=== PATIENT | female | born 1930 | race Caucasian/White ===

== ENCOUNTER 2017-10-17 15:40 | Inpatient (IN) ==
[2017-10-17] MEDS: SALINE FLUSH 10ml SYRINGE IVF PRN ×3 (16:19→21:26)
--- NOTE | 2017-10-17 16:48 | Emergency Department Report ---
Syncope HPI - General Chief Complaint: Syncope Stated Complaint: syncope, abd pain, dark stool Time Seen by Provider: 10/17/17 16:15 Source: patient, family Mode of arrival: EMS Limitations: no limitations - History of Present Illness HPI narrative: Pt presents after having fallen this am. Pt states she had been somewhat nauseated this am so she got up to get a drink of water. Pt then found herself on the floor laying next to her tipped over walker. Pt denies being dizzy or light headed prior to fall. She does not believe she was out for anything more than a "very brief" time. Pt denies head, neck or back pain, chest pain, SOA, dizziness, weakness, cough, vomiting, diarrhea, SIN, vision changes, or abd pain. Pt also reports recent dark stools. Daughter reports she saw a stool pt had just prior to arrival and noted there to be blood in it. MD complaint: loss of consciousness Onset (ago): minute(s) Witnessed: no Injuries sustained associated with event: none Current symptoms: none - Related Data Home Medications Medication Instructions Recorded Confirmed [place]-3 Fatty Acids/Fish Oil 2 cap PO DAILY #0 02/25/10 10/17/17 [Elrosa 3 1,000 mg Softgel] Potassium Chloride 20 meq PO DAILY #0 02/25/10 10/17/17 Gluc Romero/Chondro Romero A/Vit C/Mn 1 cap PO BID #0 06/25/10 10/17/17 (Glucosamine 1,500 Complex Cap) Red Yeast Rice 2 tab DAILY #0 06/25/10 10/17/17 Propranolol Hcl 60 mg PO DAILY #0 06/16/11 10/17/17 Ubidecarenone/Vitamin E Mixed 1 cap PO BID #0 06/16/11 10/17/17 (Coq10 Sg 100 Softgel) Amlodipine Besylate 5 mg PO DAILY #0 tab 06/15/13 10/17/17 Aspirin 325 mg PO DAILY #0 06/15/13 10/17/17 Multivitamins (Multivitamin) 1 tab PO DAILY #0 06/15/13 10/17/17 Acetaminophen [Tylenol Extra 1 - 2 tab PO Q6H PRN #0 tab 06/11/15 10/17/17 Strength] Calcium Carbonate/Vitamin D3 1 tab PO BID #0 06/11/15 10/17/17 (Calcium 600 + D Tablet) Cholecalciferol [Vit. D-3] 1 tab PO DAILY #0 06/11/15 10/17/17 Tramadol HCl [Ultram] 50 mg PO Q6HR PRN #0 tab 06/11/15 10/17/17 Benazepril HCl 40 mg PO DAILY 10/17/17 10/17/17 HydroCHLOROthiazide [Microzide] 12.5 mg PO DAILY 10/17/17 10/17/17 Meloxicam [Meloxicam] 15 mg PO DAILY 10/17/17 10/17/17 Trazodone [Desyrel] 100 mg PO HS 10/17/17 10/17/17 Allergies Allergy/AdvReac Type Severity Reaction Status Date / Time No Known Drug Allergies Allergy Unknown Unverified 10/17/17 16:17 Review of Systems All systems: reviewed and negative except as stated Constitutional: Reports: as per HPI Eyes: Reports: as per HPI Cardiovascular: Reports: as per HPI Respiratory: Reports: as per HPI Gastrointestinal: Reports: as per HPI Musculoskeletal: Reports: as per HPI Neurological: Reports: as per HPI Physical Exam - Limitations Limitations: no limitations - General General appearance: alert, in no apparent distress - Normal Exams: Head:: Normocephalic without trauma Eyes:: Pupils are PERRLA w/ EOMI Neck:: Full range of motion, without adenopathy Chest/Respirations:: Clear all meredith, with good airflow, and symmetry bilaterally Cardiovascular:: Regular rate and rhythm, without murmur or gallop, Pulses 2+ all extremities, capillary refill, <2 seconds all extremities Abdomen:: Bowel sounds positive, soft, non-tender, non-distended Musculoskeletal:: No tenderness, or deformity noted, good range of motion, all extremities Integumentary:: No rashes Neurological:: Patient is alert, and oriented, cranial nerves, motor/sensory/ cerebellar, exams w/o gross deficits, to observation Psychiatric:: Patient exhibits, appropriate attention, emotion and affect Course Vital Signs Temperature 97.9 F 10/17/17 15:40 Pulse Rate 79 10/17/17 15:40 Respiratory Rate 16 10/17/17 15:40 Blood Pressure 182/80 H 10/17/17 15:40 Pulse Oximetry 95 10/17/17 15:40 Temperature 97.9 F 10/17/17 15:40 Pulse Rate 79 10/17/17 15:40 Respiratory Rate 16 10/17/17 15:40 Blood Pressure 182/80 H 10/17/17 15:40 Pulse Oximetry 95 10/17/17 15:40 Syncope - MDM Narrative Medical decision making narrative: Labs, EKG, and CT reviewed. NS initiated. Dr Mitchell notified of suspicion for GI bleed and will admit pt. Findings discussed with pt and family who verbalize understanding of plan and need for admit. - Differential Diagnosis Likely: vasovagal syncope, subarachnoid hemorrhage, dehydration (GI bleed) - Lab Data Attestation: I reviewed the patient's lab results. Result diagrams: 10/17/17 16:19 10/17/17 16:19 Lab Results 10/17/17 10/17/17 10/17/17 Range/Units 16:19 16:19 16:19 WBC 8.2 (4.5-11.0) T/MM3 RBC 3.11 L (4.00-5.20) M/MM3 Hgb 8.7 L (12-16) GM/DL Hct 26.9 L (36-46) % MCV 86.5 (80-100) UM3 MCH 28.0 (26-34) UUG MCHC 32.3 (31-37) GM/DL RDW Std Deviation 42.1 (36.9-50.2) FL Plt Count 323 (130-400) T/MM3 MPV 8.6 L (9.4-12.4) UM3 Immature Gran % (Auto) 0.1 (0.0-0.5) % Neut % (Auto) 70.7 H (33-66) % Lymph % (Auto) 19.8 L (23-45) % [place] % (Auto) 7.0 (0-9.0) % Eos % (Auto) 2.2 (0-4) % Baso % (Auto) 0.2 (0-2) % Neut # (Auto) 5.8 (1.8-7.7) T/MM3 Lymph # (Auto) 1.6 (1-4.8) T/MM3 [place] # (Auto) 0.6 (0-0.8) T/MM3 Eos # (Auto) 0.2 (0-0.5) T/MM3 Baso # (Auto) 0.0 (0-0.2) T/MM3 Abs Immat Gran (auto) 0.01 (0.00-0.03) T/MM3 Turbidity < 20 (0-20) Sodium 136 (134-144) MEQ/L Potassium 3.9 (3.6-5) MEQ/L Chloride 98 (98-107) MEQ/L Carbon Dioxide 31 H (22-30) MEQ/L Anion Gap 7 (5-15) MEQ/L BUN 44.0 H (7-17) MG/DL Creatinine 0.6 L (0.7-1.2) mg/dL GFR Calculation 94 BUN/Creatinine Ratio 73 H (6-26) RATIO Glucose 107 (65-110) MG/DL Calculated Osmolality 273 (261-280) MOSM/KG Calcium 9.1 (8.4-10.2) MG/DL Total Bilirubin 0.40 (0.20-1.30) MG/DL Icterus Index < 2 (0-7) AST 30 (14-36) U/L ALT 52 (9-52) U/L Alkaline Phosphatase 76 (38-126) U/L Troponin I < 0.012 (0-0.12) ng/ml Total Protein 6.4 (6.3-8.2) g/dL Albumin 3.6 (3.5-5.0) g/dL Globulin 2.8 (2.4-3.6) G/DL Albumin/Globulin Ratio 1.3 (1.1-2.2) RATIO Lipase (23-300) U/L Specimen Hemolysis < 15 (0-25) Ur Collection Type Urine, cath straight Urine Color Yellow (YELLOW) Urine Clarity Clear Urine pH 6.0 (5.0-8.0) Ur Specific [place] <=1.005 L (1.015-1.025) Urine Protein Negative (NEGATIVE) Urine Glucose (UA) Negative (NEGATIVE) Urine Ketones Negative (NEGATIVE) Urine Occult Blood Negative (NEGATIVE) Urine Nitrate Negative (NEGATIVE) Urine Bilirubin Negative (NEGATIVE) Urine Urobilinogen 0.2 (NORMAL) EU/DL Ur Leukocyte Esterase Negative (NEGATIVE) Urinalysis Comment Microscopic not ind. Stool Occult Blood 10/17/17 10/17/17 Range/Units 16:19 17:01 WBC (4.5-11.0) T/MM3 RBC (4.00-5.20) M/MM3 Hgb (12-16) GM/DL Hct (36-46) % MCV (80-100) UM3 MCH (26-34) UUG MCHC (31-37) GM/DL RDW Std Deviation (36.9-50.2) FL Plt Count (130-400) T/MM3 MPV (9.4-12.4) UM3 Immature Gran % (Auto) (0.0-0.5) % Neut % (Auto) (33-66) % Lymph % (Auto) (23-45) % [place] % (Auto) (0-9.0) % Eos % (Auto) (0-4) % Baso % (Auto) (0-2) % Neut # (Auto) (1.8-7.7) T/MM3 Lymph # (Auto) (1-4.8) T/MM3 [place] # (Auto) (0-0.8) T/MM3 Eos # (Auto) (0-0.5) T/MM3 Baso # (Auto) (0-0.2) T/MM3 Abs Immat Gran (auto) (0.00-0.03) T/MM3 Turbidity (0-20) Sodium (134-144) MEQ/L Potassium (3.6-5) MEQ/L Chloride (98-107) MEQ/L Carbon Dioxide (22-30) MEQ/L Anion Gap (5-15) MEQ/L BUN (7-17) MG/DL Creatinine (0.7-1.2) mg/dL GFR Calculation BUN/Creatinine Ratio (6-26) RATIO Glucose (65-110) MG/DL Calculated Osmolality (261-280) MOSM/KG Calcium (8.4-10.2) MG/DL Total Bilirubin (0.20-1.30) MG/DL Icterus Index (0-7) AST (14-36) U/L ALT (9-52) U/L Alkaline Phosphatase (38-126) U/L Troponin I (0-0.12) ng/ml Total Protein (6.3-8.2) g/dL Albumin (3.5-5.0) g/dL Globulin (2.4-3.6) G/DL Albumin/Globulin Ratio (1.1-2.2) RATIO Lipase 87 (23-300) U/L Specimen Hemolysis (0-25) Ur Collection Type Urine Color (YELLOW) Urine Clarity Urine pH (5.0-8.0) Ur Specific [place] (1.015-1.025) Urine Protein (NEGATIVE) Urine Glucose (UA) (NEGATIVE) Urine Ketones (NEGATIVE) Urine Occult Blood (NEGATIVE) Urine Nitrate (NEGATIVE) Urine Bilirubin (NEGATIVE) Urine Urobilinogen (NORMAL) EU/DL Ur Leukocyte Esterase (NEGATIVE) Urinalysis Comment Stool Occult Blood Positive A - Radiology Data Attestation: I reviewed the patient's radiology results. (read per V rad) - EKG Data EKG #1 EKG attestation: Yes: I reviewed and interpreted this EKG. EKG shows normal: sinus rhythm Rate: normal Rhythm: NSR Heart block present: [place] 2 Disposition Clinical Impression: Syncope Qualifiers: Syncope type: vasovagal syncope Qualified Code(s): R55 - Syncope and collapse GI bleed Qualifiers: GI bleed type/associated pathology: unspecified gastrointestinal hemorrhage type Qualified Code(s): K92.2 - Gastrointestinal hemorrhage, unspecified Disposition: 02 To [facility] [place] Acute Care Condition: Improved Prescriptions: No Action Elrosa-3 Fatty Acids/Fish Oil [Elrosa 3 1,000 mg Softgel] 2 cap PO DAILY #0 Gluc Romero/Chondro Romero A/Vit C/Mn (Glucosamine 1,500 Complex Cap) 1 cap PO BID #0 Red Yeast Rice 2 tab DAILY #0 Ubidecarenone/Vitamin E Mixed (Coq10 Sg 100 Softgel) 1 cap PO BID #0 Amlodipine Besylate 5 mg PO DAILY #0 tab Aspirin 325 mg PO DAILY #0 Calcium Carbonate/Vitamin D3 (Calcium 600 + D Tablet) 1 tab PO BID #0 Tramadol HCl [Ultram] 50 mg PO Q6HR PRN #0 tab PRN Reason: Pain Trazodone [Desyrel] 100 mg PO HS HydroCHLOROthiazide [Microzide] 12.5 mg PO DAILY Potassium Chloride 20 meq PO DAILY #0 Propranolol Hcl 60 mg PO DAILY #0 Multivitamins (Multivitamin) 1 tab PO DAILY #0 Cholecalciferol [Vit. D-3] 1 tab PO DAILY #0 Acetaminophen [Tylenol Extra Strength] 1 - 2 tab PO Q6H PRN #0 tab PRN Reason: PAIN Benazepril HCl 40 mg PO DAILY Meloxicam [Meloxicam] 15 mg PO DAILY Referrals: Nevin Hebert MD [Family Provider] - Time of Disposition: 17:23 - Seen By: midlevel
[2017-10-17] MEDS ORDERED: NS 1,000 ML IV ONE (16:50)
[2017-10-17] MEDS ORDERED: ONDANSETRON 4 MG/2 ML INJECTION IVP PRN (18:09)
[2017-10-17] MEDS ORDERED: MORPHINE SULFATE 4mg INJECTION IVP PRN (18:09)
[2017-10-17] MEDS ORDERED: ACETAMINOPHEN 325 MG TABLET PO PRN (18:09)
[2017-10-17] MEDS ORDERED: NS FLUSH BAG 500ml IV PRN (18:14)
--- NOTE | 2017-10-17 18:27 | History & Physical Report ---
History of Present Illness Date: 10/17/17 Chief complaint: GI bleed, syncope HPI: Mirlande Yan is a very pleasant, relatively healthy, 87-year-old female patient of Dr. Hebert. She reports that for the past few weeks she has had increasing generalized weakness and fatigue. This morning, around 0700, she woke up and had some mild epigastric abdominal pain and nausea. She got up and had a drink of water and then the next thing she remembers is waking up on the floor with her walker on it's side. She denies any injury or other proceeding symptoms. No head injury, dizziness, lightheadedness, headache, change in vision, chest pain, shortness of breath, heart racing or palpitations. She was able to get herself up off the floor using her walker and get back into bed. Her daughters came by to check on her this afternoon at which time she notified them of her "fall". She also admits that as the day progressed, she had increasing stools x 3-4 which were looser than normal but denies diarrhea. She states that her stool was very dark and family reports seeing some blood tinged water in the toilet, though denies any bight red blood in or on the stool. Due to her generalized weakness with syncopal episode, she presented to [facility] [place] ED for further evaluation. Vital signs on admission with blood pressure elevated at 182 /80. Labs were obtained and revealed new anemia with hemoglobin at 8.7 as well as heme positive fecal occult test. Given her syncope, EKG was obtained and showed sinus rhythm and CT head was unremarkable. Dr. Mitchell was consulted and she was admitted into inpatient status for further evaluation, close monitoring of hemodynamic stability and surgical consult. Her length of stay is expected to exceed more than 2 over nights. On exam, she is seen in the ED with her family at the bedside, who contribute to the history. She denies any complaints or concerns at this time and expresses a desire to go home. Review of Systems All systems PM: 10-point ROS was reviewed, no additional remarkable complaints except - Constitutional Constitutional: Present: fatigue, weakness. Absent: chills, fever(s), night sweats - EENMT Eyes: Absent: change in vision, diplopia, loss of vision, photophobia Ears: Absent: ear pain Balance: Absent: vertigo, falling to one side Nose: Absent: nosebleeds Mouth/Throat: Absent: sore throat, changes in swallowing, dry mouth - Cardiovascular Cardiovascular: Present: syncope. Absent: chest pain, palpitations, dyspnea on exertion, orthopnea, edema, heart murmur Rhythm: Present: regular rhythm Vascular: Absent: pallor of an extermity, pedal edema - Respiratory Respiratory: Absent: cough, dyspnea, hemoptysis, dyspnea on exertion, wheezing - Gastrointestinal Gastrointestinal: Present: abdominal pain (epigastric), change in bowel habits, melena, nausea. Absent: vomiting Gastrointestinal Comments: Typically constipated but loose stools today. - Genitourinary Genitourinary: Absent: dysuria, flank pain, hematuria Menstruation: post menopausal - Musculoskeletal Musculoskeletal: Present: back pain (chronic), muscle weakness. Absent: deformity - Integumentary/Breasts Integumentary: Absent: rash - Neurological Neurological: Present: weakness. Absent: confusion, convulsions, dizziness, focal weakness, frequent falls, headache(s) - Psychiatric Psychiatric: Absent: anxiety, depression - Endocrine Endocrine: Absent: flushing, heat intolerance, palpitations - Hematologic/Lymphatic Hematologic/Lymphatic: Absent: easy bruising - Allergic/Immunologic Allergic/Immunologic: Absent: seasonal rhinorrhea Past Medical History Hypertension. Osteoarthritis. Chronic back pain. Chronic pancreatitis. History of gastritis - 2014. Surgical History: EGD (gastritis secondary to meloxicam) - 2014, Dr. Nicolas. Colonscopy - Dr. Nicholas. ERCP - 2014. Upper lid blepharoplasty - 2012, Dr. Tejada. Right bunionectomy - 2008. Echocardiogram (mild diastolic dysfunction , EF 65%) - 2008, Dr. Centeno. Family History Updates: Mother - , breast cancer. Father - , arthritis, from complications with cholectestomy. 2 sons and 3 daughters, all living and reportedly healthy. - Social History Smoking status: Never smoker Substance use type: does not use Alcohol intake frequency: does not drink Housing: house Current occupational status: retired Current residence: Apartment/Private Home Social history: PCP - Dr. Hebert. Cardio - Dr. Centeno. Surg - Dr. Nicholas. Medications Home Medications Medication Instructions Recorded Confirmed Type Potassium Chloride 20 meq PO DAILY #0 02/25/10/17/17 History Gluc Romero/Chondro Romero A/Vit C/Mn 1 cap PO BID #0 06/25/10 10/17/17 History (Glucosamine 1,500 Complex Cap) Red Yeast Rice 2 tab DAILY #0 06/25/10 10/17/17 History Propranolol Hcl 60 mg PO DAILY #0 06/16/11 10/17/17 History Ubidecarenone/Vitamin E Mixed 1 cap PO BID #0 06/16/11 10/17/17 History (Coq10 Sg 100 Softgel) Multivitamins (Multivitamin) 1 tab PO DAILY #0 06/15/13 10/17/17 History Calcium Carbonate/Vitamin D3 1 tab PO BID #0 06/11/15 10/17/17 History (Calcium 600 + D Tablet) Cholecalciferol [Vit. D-3] 1 tab PO DAILY #0 06/11/15 10/17/17 History APAP/Diphenhydramine 500/25 1 tab PO HS 10/17/17 10/17/17 History [Tylenol Pm] Amlodipine Besylate [Norvasc] 5 mg PO NOON 10/17/17 10/17/17 History Aspirin 1 tab PO HS 10/17/17 10/17/17 History Benazepril HCl 40 mg PO DAILY 10/17/17 10/17/17 History HydroCHLOROthiazide [Microzide] 12.5 mg PO DAILY 10/17/17 10/17/17 History Meloxicam [Meloxicam] 15 mg PO DAILY 10/17/17 10/17/17 History [place]-3 Fatty Acids/Fish Oil [Fish 1 cap PO BID 10/17/17 10/17/17 History Oil 1,000 mg Softgel] Tramadol HCl [Ultram] 50 mg PO Q6H PRN 10/17/17 10/17/17 History Trazodone [Desyrel] 100 mg PO HS 10/17/17 10/17/17 History Allergies Allergy/AdvReac Type Severity Reaction Status Date / Time No Known Drug Allergies Allergy Unknown Unverified 10/17/17 16:17 Exam Vital Signs: Temperature 97.4 F 10/17/17 18:08 Pulse Rate 94 10/17/17 18:08 Respiratory Rate 18 10/17/17 18:08 Blood Pressure 200/83 H 10/17/17 18:08 Pulse Oximetry 97 10/17/17 18:08 Telemetry Rhythm: Sinus Rhythm Comments: Patient is seen in ED room #4 with family at bedside. - Constitutional Present: no acute distress, well nourished, well developed, cooperative - Routine HEENT Exam Head: Present: normocephalic, atraumatic Eye: Present: PERRL. Absent: conjunctival icterus ENT: Present: mucous membranes moist, oropharynx clear - Routine Neck Exam Present: supple, full ROM, trachea midline. Absent: tenderness, trauma - Routine Chest/Breast/Axilla Exam Chest wall: Absent: pacemaker - Routine Respiratory Exam Present: CTA bilaterally. Absent: accessory muscle use, dyspnea, rales, respiratory distress, rhonchi, stridor, wheezes, crackles - Routine Cardiovascular Exam Present: RRR, S1, S2 - Routine Abdominal Exam Present: soft, normoactive bowel sounds, tenderness (mild - epigastric.), non distended. Absent: rebound - Routine Rectal Exam Comments: + fecal Hemoccult. - Routine Extremities Exam Present: no edema, non tender, full ROM, pulses intact - Routine Back/Spine/Pelvis Exam Back/Spine: Present: full ROM. Absent: vertebral tenderness - Routine Skin Exam Present: dry, pallor, warm. Absent: jaundice Comments: Afebrile. - Routine Neurological Exam Present: alert, oriented X3, CN II-XII intact, moving all extremities, hearing grossly intact, normal speech. Absent: facial asymmetry - Routine Psychiatric Exam Present: normal affect, cooperative Results - Labs CBC & Chem 7: 10/17/17 16:19 10/17/17 16:19 Assessment and Plan (1) Syncope Current visit: Yes Status: Acute (2) GI bleed Current visit: Yes Status: Acute Assessment and Plan: Assessment: GI bleed, present on admission. Symptomatic anemia (Hgb 8.7), acute. Syncope, prior to admission, acute. Abdominal pain, epigastric, present on admission, acute. Hypertension. Osteoarthritis. Chronic back pain. Chronic pancreatitis. History of gastritis with use of Meloxicam- 2014. Plan - 10/17/17: Admit to inpatient status under the care of Dr. Mitchell due to GI bleed and symptomatic anemia resulting in syncopal episode. Will consult Dr. Nicholas in AM for surgical evaluation. Hgb 8.7 on admission - patient given 1L NS in ED. Will monitor serial hemoglobins. Type and cross 2 units now - will hold PRBC at this time. Protonix 40mg IV BID for suspected gastritis, PUD and GI protection. Maintain NPO status given nausea and acute bleed as well as anticipated endoscopy tomorrow. NS 100cc/hr for hydration. Monitor closely for signs of fluid overload. Blood pressure elevated in ED. Monitor closely. Continue home amlodipine, benazepril, HCTZ and propranolol. Will hold home ibuprofen, ASA and meloxicam given GI bleed. Morphine 1-2mg IV PRN as well as Tylenol. Zofran as needed for nausea/vomiting. Recheck labs in AM to monitor blood counts, electrolytes and renal function. SCDs for DVT prophylaxis. Upon discharge, patient's care will be returned to her PCP, Dr. Hebert. DVT Prophylaxis: SCD's GI Prophylaxis: Protonix Resuscitation Status: Do Not Resuscitate - Time spent with patient Time with patient PN: 50 minutes - Physician Narrative Physician: Lazara Mitchell MD Narrative: Date: 10/17/17 Time: 1949 I have independently evaluated and examined this patient. I reviewed the chart, the patient's history, and the [employer]/PA's documented findings as above. We discussed and formulated the assessment and plan as above with additions as below: Mrs. Yan was seen with her daughters at the bedside. She denies chronic GI symptoms noting onset of nausea this morning only. She's been using meloxicam for the past year on a daily basis but denies steroids or other nonsteroidal/ arthritis medication use. She has a known hiatal hernia but specifically denies reflux, indigestion, heartburn, or chronic abdominal pain. She reports stools were normal in color yesterday but did seem narrower than usual. Patient denies having diarrhea currently but has had several small formed black stools since arriving in the hospital. Patient does complain of arthritis localized to the back and right shoulder. Mild left upper extremity rest tremor on examination. Patient is alert and provides coherent history. Regular rhythm, respirations nonlabored, good airflow with clear breath sounds anteriorly Abdomen soft with minimal tenderness on palpation in the epigastrium-no guarding Significant degenerative changes in the small joints of the hands generalized pallor; Normocytic anemia on presentation Diffuse T-wave changes/flattening on twelve-lead EKG by my review, sinus rhythm. No acute changes. CT of the head also reviewed by myself and without evidence of acute intracranial injury. Probable upper GI bleed-likely acute although cannot exclude acute on chronic. Hypertensive on presentation but will hold diuretic due to potential for volume depletion. Hold parameters written for other blood pressure medications. PPI to be initiated now and second IV access to be placed. Discussed with Dr. English. Hospital Course Summary Disclaimer: The visit summary below is not to be considered part of the above Progress Note. Hospital Course: Plan - 10/17/17: Admit to inpatient status under the care of Dr. Mitchell due to GI bleed and symptomatic anemia resulting in syncopal episode. Will consult Dr. Nicohlas in AM for surgical evaluation. Hgb 8.7 on admission - patient given 1L NS in ED. Will monitor serial hemoglobins. Type and cross 2 units now - will hold PRBC at this time. Protonix 40mg IV BID for suspected gastritis, PUD and GI protection. Maintain NPO status given nausea and acute bleed as well as anticipated endoscopy tomorrow. NS 100cc/hr for hydration. Monitor closely for signs of fluid overload. Blood pressure elevated in ED. Monitor closely. Continue home amlodipine, benazepril, and propranolol. Will hold home ibuprofen, ASA and meloxicam given GI bleed. Morphine 1-2mg IV PRN as well as Tylenol. Zofran as needed for nausea/vomiting. Recheck labs in AM to monitor blood counts, electrolytes and renal function. SCDs for DVT prophylaxis. Upon discharge, patient's care will be returned to her PCP, Dr. Hebert.
[2017-10-17] MEDS: NS 1,000 ML IV SCH (18:41)
[2017-10-17] MEDS ORDERED: FALL RISK - PHARMACY CONSULT XX ONE (18:48)
[2017-10-17] MEDS: PANTOPRAZOLE 40 MG INJECTION IVP SCH ×2 (19:54→21:26)
[2017-10-17] MEDS ORDERED: PANTOPRAZOLE 40 MG INJECTION IVP SCH (21:00)
[2017-10-17] MEDS: TRAZODONE 100 MG TABLET PO SCH (21:27)
[2017-10-18] MEDS: SALINE FLUSH 10ml SYRINGE IVF PRN ×3 (01:22→21:58)
[2017-10-18] MEDS: NS 1,000 ML IV SCH ×2 (01:22→05:08)
--- NOTE | 2017-10-18 07:57 | CT Scan Report ---
Indication: fall, LOC PROCEDURE: CT head/brain wo con: Encounter: Initial Comparison: None Technique: Axial CT images through the head were performed without contrast. Iterative Reconstruction dose reducing technique was utilized. FINDINGS: Mild generalized atrophy. The ventricles are of normal size, shape, and configuration for the patient's age. There is no evidence of acute intracranial hemorrhage, midline displacement, or mass effect. There are multiple areas of low attenuation in the white matter which most likely represent changes of chronic microvascular ischemia. The CT attenuation of the brain parenchyma is otherwise normal within the cerebellum, brain stem, and cerebral hemispheres. The tympanic cavities and mastoid air cells are free of appreciable disease. There are no definite fractures of the skull base, calvarium, or visualized portion of the midface. IMPRESSION: No CT evidence of acute traumatic intracranial injury. There is a preliminary report by [employer] radiologic. .
--- NOTE | 2017-10-18 08:05 | General Surgery Consult Note ---
Consult date: 10/18/17 Attending Physician: Lazara Mitchell MD Reason for consult: abdominal pain [facility] Patient Stated Medical History Cataracts Hearing Loss Macular Degeneration Cardiac Arrhythmia Hypertension chronic PANCREATITIS Osteoarthritis Kyphosis Intrathoracic hiatal hernia noted on CT 06/12/2015 Surgical History: EGD (gastritis secondary to meloxicam) - 2014, Dr. Nicolas. Colonscopy - Dr. Nicholas. ERCP - 2014. Upper lid blepharoplasty - 2012, Dr. Tejada. Right bunionectomy - 2008. Echocardiogram (mild diastolic dysfunction , EF 65%) - 2008, Dr. Centeno. Family History Updates: Mother - , breast cancer. Father - , arthritis, from complications with cholectestomy. 2 sons and 3 daughters, all living and reportedly healthy. - Social History Smoking status: Never smoker Substance use type: does not use Alcohol intake frequency: does not drink Housing: house Current occupational status: retired Current residence: Apartment/Private Home Medications Home Medications Medication Instructions Recorded Confirmed Type Potassium Chloride 20 meq PO DAILY #0 02/25/10 10/17/17 History Gluc Romero/Chondro Romero A/Vit C/Mn 1 cap PO BID #0 06/25/10 10/17/17 History (Glucosamine 1,500 Complex Cap) Red Yeast Rice 2 tab DAILY #0 06/25/10 10/17/17 History Propranolol Hcl 60 mg PO DAILY #0 06/16/11 10/17/17 History Ubidecarenone/Vitamin E Mixed 1 cap PO BID #0 06/16/11 10/17/17 History (Coq10 Sg 100 Softgel) Multivitamins (Multivitamin) 1 tab PO DAILY #0 06/15/13 10/17/17 History Calcium Carbonate/Vitamin D3 1 tab PO BID #0 06/11/15 10/17/17 History (Calcium 600 + D Tablet) Cholecalciferol [Vit. D-3] 1 tab PO DAILY #0 06/11/15 10/17/17 History APAP/Diphenhydramine 500/25 1 tab PO HS 10/17/17 10/17/17 History [Tylenol Pm] Amlodipine Besylate [Norvasc] 5 mg PO NOON 10/17/17 10/17/17 History Aspirin 1 tab PO HS 10/17/17 10/17/17 History Benazepril HCl 40 mg PO DAILY 10/17/17 10/17/17 History HydroCHLOROthiazide [Microzide] 12.5 mg PO DAILY 10/17/17 10/17/17 History Meloxicam [Meloxicam] 15 mg PO DAILY 10/17/17 10/17/17 History [place]-3 Fatty Acids/Fish Oil [Fish 1 cap PO BID 10/17/17 10/17/17 History Oil 1,000 mg Softgel] Tramadol HCl [Ultram] 50 mg PO Q6H PRN 10/17/17 10/17/17 History Trazodone [Desyrel] 100 mg PO HS 10/17/17 10/17/17 History Allergies Allergy/AdvReac Type Severity Reaction Status Date / Time No Known Drug Allergies Allergy Unknown Unverified 10/17/17 16:17 Review of Systems 10-point ROS: negative except for HPI and the following: - General General: Present: other (fatigue) - Eyes/Ears/Nose/Throat Eyes: Present: vision problems (macular degeneration) Ear Nose Throat: Present: hearing problems - Cardiovascular Cardiovascular: Present: other (syncope prior to admission) - Gastrointestinal Gastrointestinal: Present: nausea, diarrhea (loose stools) - Musculoskeletal Musculoskeletal: Present: back pain, joint pain, other (right upper arm pain) - Neurological Neurological: Present: muscle weakness (uses a walker) - Vital Signs Last Vital Signs Temp 96.3 F L 10/18/17 07:00 Pulse 94 10/18/17 07:17 Resp 16 10/18/17 07:00 BP 125/58 10/18/17 07:17 Pulse Ox 96 10/18/17 07:00 - Laboratory Result Diagrams: 10/18/17 04:43 10/18/17 04:43 General Surgery Results - Results Labs: 10/18/17 04:43 10/18/17 04:43 Hospital Course Summary Disclaimer: The visit summary below is not to be considered part of the above Progress Note. Hospital Course: Plan - 10/17/17: Admit to inpatient status under the care of Dr. Mitchell due to GI bleed and symptomatic anemia resulting in syncopal episode. Will consult Dr. Nicholas in AM for surgical evaluation. Hgb 8.7 on admission - patient given 1L NS in ED. Will monitor serial hemoglobins. Type and cross 2 units now - will hold PRBC at this time. Protonix 40mg IV BID for suspected gastritis, PUD and GI protection. Maintain NPO status given nausea and acute bleed as well as anticipated endoscopy tomorrow. NS 100cc/hr for hydration. Monitor closely for signs of fluid overload. Blood pressure elevated in ED. Monitor closely. Continue home amlodipine, benazepril, and propranolol. Will hold home ibuprofen, ASA and meloxicam given GI bleed. Morphine 1-2mg IV PRN as well as Tylenol. Zofran as needed for nausea/vomiting. Recheck labs in AM to monitor blood counts, electrolytes and renal function. SCDs for DVT prophylaxis. Upon discharge, patient's care will be returned to her PCP, Dr. Hebert.
[2017-10-18] MEDS: AMLODIPINE 5 MG TABLET PO SCH ×2 (08:07→14:01)
[2017-10-18] MEDS: BENAZEPRIL 40 MG TABLET PO SCH ×2 (08:07→14:02)
[2017-10-18] MEDS: PANTOPRAZOLE 40 MG INJECTION IVP SCH ×2 (08:17→21:58)
[2017-10-18] MEDS: PROPRANOLOL LA 60 MG CAPSULE PO SCH ×2 (08:18→14:02)
[2017-10-18] MEDS ORDERED: MORPHINE SULFATE 2mg INJECTION IVP PRN (08:30)
[2017-10-18] MEDS: NS with KCL 20 mEq 1,000 ML IV SCH (10:19)
--- NOTE | 2017-10-18 10:57 | Progress Note ---
- Date 10/18/17 Subjective: Mirlande is feeling fairly well today, and was disappointed to hear that she won' t be able to go home today. She denies weakness or lightheadedness, orthostasis , shortness of breath, fatigue, or palpitations. No chest pain. She has some abdominal tenderness. Her stools are formed with erwin, dark red blood in them. She denies vomiting. She states that her abdomen feels bloated. Objective Vital signs: Temperature 96.3 F L 10/18/17 07:00 Pulse Rate 72 10/18/17 08:00 Respiratory Rate 16 10/18/17 07:00 Blood Pressure 125/58 10/18/17 07:17 Pulse Oximetry 96 10/18/17 07:00 Height/Weight/BMI: Height 1.57 m Weight 68.5 kg Body Mass Index 28.3 - Constitutional Present: no acute distress, well nourished, well developed - Routine HEENT Exam Head: Present: normocephalic Eye: Absent: conjunctival icterus, scleral injection ENT: Present: oropharynx clear - Routine Respiratory Exam Present: CTA bilaterally - Routine Cardiovascular Exam Present: RRR, S1, S2 - Routine Abdominal Exam Present: soft, tenderness (minimal diffuse tenderness), non distended. Absent: normoactive bowel sounds (hypoactive) - Routine Extremities Exam Present: no edema, pulses intact - Routine Skin Exam Present: intact, dry, warm - Routine Neurological Exam Present: alert, oriented X3 - Routine Psychiatric Exam Present: normal affect, normal thought process, cooperative Results - Labs CBC & Chem 7: 10/18/17 04:43 10/18/17 04:43 Assessment and Plan (1) Syncope Current visit: Yes Status: Acute (2) GI bleed Current visit: Yes Status: Acute Assessment and Plan: Assessment: GI bleed, present on admission. Symptomatic anemia (POA) - transfused 1 unit PRBC 10/18. Syncope, prior to admission. Abdominal pain, epigastric, present on admission,. Hypertension. Osteoarthritis. Chronic back pain. Chronic pancreatitis. History of gastritis with use of Meloxicam- 2014. Iron deficiency-10/18/17, RLL Plan - 10/18/17: Hgb trended down to 7.[address] Mitchell has ordered PRBC unit. Dr. Nicholas consulted - awaiting recommendations. Continue PPI BP was elevated yesterday; today has decreased to 125/58 - continue to monitor closely in the face of acute GI bleeding. Safe at this point to continue Norvasc and Lotensin. Cont IVF support. K decreased to 3.3 - IVF changed to include KCl. Recheck in am. Discussed with RN and with patient's daughter. DVT Prophylaxis: SCD's GI Prophylaxis: Protonix Resuscitation Status: Do Not Resuscitate - Physician Narrative Physician: Lazara Mitchell MD Narrative: Date: 10/18/17 Time: 1430 I have independently evaluated and examined this patient. I reviewed the chart, the patient's history, and the LAB HEAD/PA's documented findings as above. We discussed and formulated the assessment and plan as above with additions as below: Mrs. Yan seems her daughters at the bedside. She denied abdominal symptoms when I saw her prior to endoscopy and reported that she was no longer having frequent stools. Results of EGD related reviewed with the patient and her daughters and the patient was surprised to learn that a gastric ulcer was identified. NAD, alert Abdomen soft, nontender-epigastric tenderness present yesterday is not readily evident on repeat examination Respirations nonlabored Serum iron 31, TIBC 299, iron saturation 10% Slow drop in hemoglobin overnight-1 unit of blood transfused this morning. Endoscopic findings reviewed with Dr. Nicholas, pathology pending but likely due to nonsteroidal use. Carafate added to PPI. Management of iron deficiency reviewed with the patient and her daughters; patient concerned about constipation with oral iron therapy and daughters have opted for IV replacement. Patient reports she previously took aspirin 325 mg daily as a "blood thinner" for undefined reason after she had been on warfarin briefly for an abnormal heart rhythm. Family do not believe she was ever told she had atrial fibrillation and there is no indication of atrial fibrillation in past hospital records although limited records are available. Telemetry strips reviewed since patient hospitalized-consistently sinus. Hospital Course Summary Disclaimer: The visit summary below is not to be considered part of the above Progress Note. Hospital Course: Plan - 10/17/17: Admit to inpatient status under the care of Dr. Mitchell due to GI bleed and symptomatic anemia resulting in syncopal episode. Will consult Dr. Nicholas in AM for surgical evaluation. Hgb 8.7 on admission - patient given 1L NS in ED. Will monitor serial hemoglobins. Type and cross 2 units now - will hold PRBC at this time. Protonix 40mg IV BID for suspected gastritis, PUD and GI protection. Maintain NPO status given nausea and acute bleed as well as anticipated endoscopy tomorrow. NS 100cc/hr for hydration. Monitor closely for signs of fluid overload. Blood pressure elevated in ED. Monitor closely. Continue home amlodipine, benazepril, and propranolol. Will hold home ibuprofen, ASA and meloxicam given GI bleed. Morphine 1-2mg IV PRN as well as Tylenol. Zofran as needed for nausea/vomiting. Recheck labs in AM to monitor blood counts, electrolytes and renal function. SCDs for DVT prophylaxis. Upon discharge, patient's care will be returned to her PCP, Dr. Hebert. 10/18/17 Hgb trended down to 7.[address] Mitchell has ordered PRBC unit. Dr. Nicholas consulted -EGD obtained demonstrating a gastric ulcer. Continue PPI, Carafate added. Iron deficiency present, patient/family have opted for IV iron replacement which will be administered today. BP was elevated yesterday; today has decreased to 125/58 - continue to monitor closely in the face of acute GI bleeding. Safe at this point to continue Norvasc and Lotensin. Cont IVF support. K decreased to 3.3 - IVF changed to include KCl. Recheck in am.
[2017-10-18] MEDS ORDERED: LR 1,000 ML IV SCH (11:00)
[2017-10-18] MEDS ORDERED: PROPOFOL 20 ML ONE (11:20)
--- NOTE | 2017-10-18 12:37 | Anesthesia Preoperative Report ---
Anesthesia Preoperative Record - Date and Time Date: 10/18/17 Preoperative Diagnosis: GI bleed Proposed Procedure: egd NPO Since Date: 10/17/17 NPO Since Time: 22:00 Allergies/Adverse Reactions: Allergies Allergy/AdvReac Type Severity Reaction Status Date / Time No Known Drug Allergies Allergy Unknown Unverified 10/17/17 16:17 - Vital Signs Vital Signs: Temperature 98.1 F 10/18/17 12:10 Pulse Rate 78 10/18/17 12:10 Respiratory Rate 19 10/18/17 12:10 Blood Pressure 182/80 H 10/18/17 12:10 Pulse Oximetry 94 10/18/17 12:10 Height and Weight: Height 1.57 m Weight 68.5 kg Body Mass Index 28.3 - Medications Inpatient Medications: Current Medications Acetaminophen (Tylenol) 325 - 650 mg PO Q5H PRN PRN Reason: Discomfort Amlodipine Besylate (Norvasc) 5 mg PO DAILY [facility] Last Admin: 10/18/17 08:07 Dose: Not Given Benazepril HCl (Lotensin) 40 mg PO DAILY [facility] Last Admin: 10/18/17 08:07 Dose: Not Given Potassium Chloride/Sodium Chloride (Ns With Kcl 20 Meq) 1,000 mls @ 75 mls/hr IV .[id number] [facility] Last Infusion: 10/18/17 10:54 Dose: 0 mls/hr Lactated Ringer's (Lactated Ringers) 1,000 mls @ 50 mls/hr IV .Q20H [facility] Morphine Sulfate (Morphine Sulfate Inj) 1 - 2 mg IVP Q2H PRN PRN Reason: Pain Ondansetron HCl (Zofran) 4 mg IVP Q6H PRN PRN Reason: Nausea &/or vomiting Pantoprazole Sodium (Protonix Iv) 40 mg IVP BID [facility] Last Admin: 10/18/17 08:17 Dose: 40 mg Propranolol HCl (Inderal La) 60 mg PO DAILY [facility] Last Admin: 10/18/17 08:18 Dose: Not Given Sodium Chloride (Iv Flush) 10 - 80 ml IVF PRN PRN PRN Reason: Flushing Last Admin: 10/18/17 01:22 Dose: 10 ml Sodium Chloride (Normal Saline) 500 ml IV PRN PRN Trazodone HCl (Desyrel) 100 mg PO HS [facility] Last Admin: 10/17/17 21:27 Dose: 100 mg Home Medications: Home Medications Medication Instructions Recorded Confirmed Type Potassium Chloride 20 meq PO DAILY #0 02/25/10 10/17/17 History Gluc Romero/Chondro Romero A/Vit C/Mn 1 cap PO BID #0 06/25/10 10/17/17 History (Glucosamine 1,500 Complex Cap) Red Yeast Rice 2 tab DAILY #0 06/25/10 10/17/17 History Propranolol Hcl 60 mg PO DAILY #0 06/16/11 10/17/17 History Ubidecarenone/Vitamin E Mixed 1 cap PO BID #0 06/16/11 10/17/17 History (Coq10 Sg 100 Softgel) Multivitamins (Multivitamin) 1 tab PO DAILY #0 06/15/13 10/17/17 History Calcium Carbonate/Vitamin D3 1 tab PO BID #0 06/11/15 10/17/17 History (Calcium 600 + D Tablet) Cholecalciferol [Vit. D-3] 1 tab PO DAILY #0 06/11/15 10/17/17 History APAP/Diphenhydramine 500/25 1 tab PO HS 10/17/17 10/17/17 History [Tylenol Pm] Amlodipine Besylate [Norvasc] 5 mg PO NOON 10/17/17 10/17/17 History Aspirin 1 tab PO HS 10/17/17 10/17/17 History Benazepril HCl 40 mg PO DAILY 10/17/17 10/17/17 History HydroCHLOROthiazide [Microzide] 12.5 mg PO DAILY 10/17/17 10/17/17 History Meloxicam [Meloxicam] 15 mg PO DAILY 10/17/17 10/17/17 History [place]-3 Fatty Acids/Fish Oil [Fish 1 cap PO BID 10/17/17 10/17/17 History Oil 1,000 mg Softgel] Tramadol HCl [Ultram] 50 mg PO Q6H PRN 10/17/17 10/17/17 History Trazodone [Desyrel] 100 mg PO HS 10/17/17 10/17/17 History Is Patient on Beta Nicki?: No - Medical History Cardiovascular: Reports: Arrhythmia (irregularity), Hypertension Gastrointestional: Reports: Other (PANCREATITIS) Neuro/Musculoskeletal: Reports: HX.MS.OSAR, Back Problems - Surgical History HEENT Surgeries: Reports: Ear Surgery GI Surgery/Treatments: Reports: EGD Musculoskeletal Surgery/Tx: Reports: Other (POLIO) - Social History Smoking Status: Never smoker Hx Chewing Tobacco Use: No Second Hand Exposure: No Substance Use Type: does not use Alcohol Intake Frequency: does not drink - Pertinent Findings Laboratory: CBC and BMP 10/18/17 04:43 10/18/17 04:43 BMP 10/18/17 04:43 Sodium 142 D Potassium 3.3 L Chloride 106 D Carbon Dioxide 29 BUN 25.0 H Creatinine 0.5 L Glucose 98 Calcium 8.3 L D EKG: Sinus Rhythm - Physical Exam Respiratory Exam: Present: lungs clear, bilateral breath sounds equal Cardiovascular Exam: Present: regular rate and rhythm, no murmur - Airway Assessment Mallampati Score: II TMD: 3 Fingerbreadths Neck Extension: good Teeth: chipped teeth/crowns Overall Assessment: no airway concerns - ASA ASA Score: 2, E - Plan Anesthesia: General TIVA - Discussion Discussion: Discussed risks/options/alternatives of anesthesia and questions answered. Patient consents. Nursing pain assessment noted. Present for Discussion: family member Attestation Statement: Prior to the delivery of any anesthetic medication, I examined the patient, developed the plan, obtained the patient's consent and discussed the risk and benefits of the procedure with the patient/guardian. - Additional Information Seen by Anesthesia: Yes
[2017-10-18] MEDS ORDERED: NS 1,000 ML IV SCH (12:45)
[2017-10-18] MEDS ORDERED: LIDOCAINE VISCOUS 2% ORAL LIQUID 15ml ONE (12:52)
--- NOTE | 2017-10-18 12:57 | Procedure Note ---
- Procedure Date/Time: Date: 10/18/17 Time: 6 Surgeon: Cristopher ASA Score: 2, E Proceure: EGD for valentina assay, EGD- antrum biopsies (and biopsy from edge of gastric ulcer) - Postoperative EGD Diagnosis Postoperative EGD Diagnosis: Hiatal hernia, Other (gastric ulcer) - Complications Estimated Blood Loss: See Anesthesia Record. Vital Signs: See Anesthesia and PACU record.
--- NOTE | 2017-10-18 14:23 | Anesthesia Postoperative Note ---
- Date and Time Date: 10/18/17 Time: 14:22 - Status Patient Participated in Evaluation: Patient Participated in Person Vital Signs: Temperature 96.3 F L 10/18/17 14:13 Pulse Rate 82 10/18/17 14:13 Respiratory Rate 16 10/18/17 14:13 Blood Pressure 162/72 H 10/18/17 14:13 Pulse Oximetry 96 10/18/17 14:13 Respiratory Function: Airway Patent Cardiovascular Function: Regular Pulse EKG: Sinus Rhythm Mental Status: Alert and Oriented Pain Intensity: 0 Hydration: IV Infusing Complications During Recover: None Apparent - Follow-Up Instructions Instructions: Per Surgeon
[2017-10-18] MEDS ORDERED: IRON - PHARMACY CONSULT MC ONE (14:32)
[2017-10-18] MEDS ORDERED: SOLU-MEDROL 125mg/2ml INJ (HIVES-ANAPHYLAXIS) IVP PRN (15:00)
[2017-10-18] MEDS ORDERED: EPINEPHRINE 1mg/ml INJ (ANAPHYAXIS ONLY) IM PRN (15:00)
[2017-10-18] MEDS ORDERED: INFED 100mg/2ml INJ TEST DOSE IVP ONE (15:00)
[2017-10-18] MEDS ORDERED: BENADRYL 50 MG/ML INJ (HIVES-ANAPHYLAXIS) IVP PRN (15:00)
--- NOTE | 2017-10-18 15:17 | Consultation ---
DATE OF CONSULTATION 10/18/2017 FINDINGS Mrs. Yan is a pleasant 87-year-old female whom I was asked to see today as a result of her history for a syncopal event, epigastric discomfort, and history for "darker stools." Mrs. Yan is known to my surgical practice, but it has been a number of years since I have seen her. I had also taken care of her , who is , in the remote past as well. Mrs. Yan informs me that yesterday she was up and about with her walker. She states that the next thing she remembers she was lying on the ground with her walker next to her that had been turned over. The patient was able to get up off the floor and return back to bed. She does have two daughters who are registered nurses. The patient did not notify her daughters at that time and rested in bed. Apparently she did have several stools shortly thereafter and noted that they were "darker than usual." Eventually the patient's daughters, as they usually do, checked on the patient to find out that she had fallen. Apparently they did notice that there was some blood-tinged stool present within the bathroom. The patient was subsequently admitted to the hospital for further evaluation. The patient informs me that she has been taking meloxicam on a daily basis for back discomfort. Apparently she has had a history for gastritis in the past as well. The patient states that she has noted some slight discomfort but not severe pain within her epigastric region. This discomfort is not typically related to eating. She denied really any specific aggravating or alleviating symptomatology in regards to this epigastric discomfort. PAST MEDICAL HISTORY Performed by my nurse practitionerRaymundo. PAST SURGICAL HISTORY Performed by my nurse practitionerRaymundo. MEDICATIONS Performed by my nurse practitionerRaymundo. ALLERGIES Performed by my nurse practitionerRaymundo. SOCIAL HISTORY Performed by my nurse practitionerRaymundo. FAMILY HISTORY Performed by my nurse practitionerRaymundo. REVIEW OF SYSTEMS Performed by my nurse practitionerRaymundo. PHYSICAL EXAMINATION GENERAL: Mrs. Yan is an 87-year-old female who does not appear to be in any acute distress. VITALS: Temperature 98.1, pulse 78, respirations 19, blood pressure 182/80, SaO2 94% on room air. HEENT: Normocephalic. Pupils are equal, round and reactive to light and accommodation. NECK: Supple without lymphadenopathy. CHEST: Clear to auscultation bilaterally. HEART: Regular rate and rhythm. Normal S1 and S2 without gallops, murmurs or clicks. ABDOMEN: Palpation of the abdomen reveals it to be soft and nontender. I do not appreciate any evidence for hepatosplenomegaly or abnormal masses. EXTREMITIES: Without clubbing, cyanosis, or edema. NEURO: Cranial nerves II-XII grossly intact. Patient is without focal motor or sensory deficits. LABORATORY/RADIOGRAPHIC/REVIEW OF PATIENT'S CHART I did spend a moderate amount of time reviewing the outside records as well as the patient's current electronic record. I do see that the patient underwent a prior EGD by her former PCP, Dr. Nicolas, on 06/12/2015. The patient was having a component of epigastric discomfort at that time. Dr. Nicolas had noted a hiatal hernia as well as an extrinsic mass along the lesser curvature of the stomach "pushing into the stomach." Biopsy was taken overlying the mucosa at this location. Biopsies returned as benign gastric mucosa. 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 This likely corresponded with the extrinsic mass noted upon the prior EGD. The patient was found to have a large hiatal hernia with a partially intrathoracic stomach. She was also found to have an abnormal appearance of the body and tail of the pancreas with significant atrophy and ductal dilatation. The patient and her daughter inform me that she was subsequently transferred to [place] and underwent ERCP which did return as normal with no evidence for malignancy. I reviewed current lab work from this admission. Her hemoglobin was 8.2 upon admission. It has decreased to 7.5. The patient was given blood this morning. I reviewed admission orders. I do see the patient is on empiric treatment for peptic ulcer disease consisting of pantoprazole 40 mg IV b.i.d. I reviewed admission history and physical performed by Dr. Mitchell. I reviewed BMP from today and her potassium is slightly low at 3.3. ASSESSMENT 87-year-old female with history for epigastric discomfort, history for intrathoracic stomach/hiatal hernia, history for nonsteroidal use, history for probable melanotic stools, anemia. PLAN Esophagogastroduodenoscopy. Continuation of empiric treatment for peptic ulcer disease. Will await the endoscopic results and proceed with further recommendations. I informed the patient and her daughters that I would recommend, today, proceeding with esophagogastroduodenoscopy. The patient does have history for nonsteroidal use and clinical history suggestive of melenic stools followed by a syncopal event. I did discuss with the patient and her daughters what an EGD entails and its associated risks which include but are not limited to bleeding and/or perforation requiring surgery. MTDD
[2017-10-18] MEDS ORDERED: IRON DEXTRAN IV SCH (16:00)
[2017-10-18] MEDS ORDERED: NS IV SCH (16:00)
[2017-10-18] MEDS: SUCRALFATE 1gm/10ml ORAL LIQUID PO SCH ×2 (17:26→20:09)
[2017-10-18] MEDS: TRAZODONE 100 MG TABLET PO SCH (20:10)
[2017-10-19] MEDS: NS with KCL 20 mEq 1,000 ML IV SCH ×2 (00:14→08:30)
[2017-10-19 04:25] VITALS: TEMP 97.7
[2017-10-19] MEDS: SUCRALFATE 1gm/10ml ORAL LIQUID PO SCH ×2 (05:49→11:23)
--- NOTE | 2017-10-19 07:07 | Operative Note ---
DATE OF SERVICE 10/18/2017 SURGEON Julio Nicholas MD PREOPERATIVE DIAGNOSES History for melanotic stools, history for syncopal event, history for anemia, history for Hemoccult positive stool. POSTOPERATIVE DIAGNOSES History for melanotic stools, history for syncopal event, history for anemia, history for Hemoccult positive stool; hiatal hernia, prepyloric gastric ulcer. PROCEDURE Esophagogastroduodenoscopy with biopsies of edge of prepyloric ulcer as well as from within antrum via cold biopsy technique. ANESTHESIA TIVA BRIEF HISTORY/INDICATIONS Mrs. Yan is an 87-year-old female I was asked to see as a new patient today following her hospitalization as a result of her questionable history for melanotic stools, finding of anemia upon laboratory evaluation, recent syncopal event, and the finding of a Hemoccult positive stool. It was recommended the patient undergo an EGD for further evaluation. For completeness please refer to notes included in the patient's chart. FINDINGS Upon upper endoscopy the patient was found have about an 8 cm hiatal hernia. 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 Additionally, along the greater curvature within the prepyloric region, the patient was found to have a gastric ulcer. The ulcer itself was on the order of about 8 mm to a centimeter in dimension. There was a white exudate -like material overlying the ulcer bed. There was no evidence for active bleeding. Biopsies were obtained from the edge of this ulcer via cold biopsy technique. Biopsies were also obtained from within the antrum to rule in or rule out the presence of H. pylori. DESCRIPTION OF PROCEDURE After informed consent was obtained, the patient was brought to the endoscopy suite and placed on the table in left lateral decubitus position. The patient subsequently underwent total intravenous anesthesia by the nurse radio disc jockey per my request. Formal time-out was then completed. Next, an Olympus gastroscope was inserted in the oral hypopharynx and subsequently the esophagus under direct visualization. Gastroscope was advanced through the esophagus, stomach, pylorus, duodenal bulb, into second portion of duodenum. Scope was slowly withdrawn. First and second portions of duodenum were within normal limits. No evidence of duodenitis or ulcerations were noted. Scope was withdrawn back to the prepyloric region and antrum. As stated above, the patient was found to have an 8 mm to 1 cm ulcer along the greater curvature of the stomach within the prepyloric region. There was a white exudate-like material overlying the ulcer bed. The ulcer was not actively bleeding. Biopsies were obtained from the edge of the ulcer via cold biopsy technique. Additionally, there was an erythematous-appearing area that extended away from the actual ulcer bed towards a submucosal area of prominence. Biopsies were also obtained from within this area for permanent pathology. The patient was found to have a submucosal area of prominence along the lesser curvature of the stomach within the prepyloric region. 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 Biopsies were also obtained from within the antrum for a EDUAR assay via cold biopsy technique. A J maneuver was then performed. Endoscopically, the patient was found to have evidence for a hiatal hernia. Otherwise, the cardia and fundus were within normal limits. The scope was allowed to straightened and slowly withdrawn and the remaining corpus of the stomach was well visualized and, again, without noted abnormalities. The scope was withdrawn back to the level of the diaphragm which was at about 40 cm from the incisors. The scope was withdrawn back to the squamocolumnar junction which was at about 32 cm from the incisors. Therefore, the patient had about an 8 cm hiatal hernia. The scope was then slowly withdrawn and the remaining esophageal mucosa was found within normal limits. The patient tolerated the procedure without difficulty and was sent back to the preop area in stable condition. Given the findings of this gastric ulcer, we also will add Carafate to her medical regimen. Given the fact the patient is not actively bleeding, I do believe the patient could be begun on a soft diet. DARRIAN
[2017-10-19 07:45] VITALS: BMI 27.6
[2017-10-19] MEDS: PROPRANOLOL LA 60 MG CAPSULE PO SCH (08:30)
[2017-10-19] MEDS: PANTOPRAZOLE 40 MG INJECTION IVP SCH (08:33)
[2017-10-19] MEDS: AMLODIPINE 5 MG TABLET PO SCH (08:34)
[2017-10-19] MEDS: BENAZEPRIL 40 MG TABLET PO SCH (08:34)
--- NOTE | 2017-10-19 10:36 | General Surgery Progress Note ---
Subjective Patient reports: feels better (denies dizziness, light headedness, denies chest pain, SOA. States she is feeling stable and would like to be discharged.) - Vital Signs Last Vital Signs Temp 97.7 F 10/19/17 07:45 Pulse 69 10/19/17 08:00 Resp 14 10/19/17 07:45 BP 156/71 H 10/19/17 07:45 Pulse Ox 94 10/19/17 07:45 - Laboratory Result Diagrams: 10/19/17 04:03 10/19/17 04:03 - Normal Exam General: awake, alert Cardiovascular: regular rate Respiratory: clear bilaterally, no labored breathing Abdominal: soft, non-tender Psychiatric: normal affect Neurological: CN 2-12 grossly intact Assessment and Plan (1) Gastric ulcer Current Visit: Yes Status: Acute Qualifiers: Gastric ulcer chronicity: acute Gastric ulcer complication status: with hemorrhage Qualified Code(s): K25.0 - Acute gastric ulcer with hemorrhage (2) GI bleed Current Visit: Yes Status: Acute Qualifiers: GI bleed type/associated pathology: gastric ulcer Qualified Code(s): K25.4 - Chronic or unspecified gastric ulcer with hemorrhage (3) Syncope Current Visit: Yes Status: Resolved Qualifiers: Syncope type: vasovagal syncope Qualified Code(s): R55 - Syncope and collapse Plan: Prepyloric gastric ulcer found on EGD. She was started on Carafate Slurry yesterday and should continue for 1 month. Continue PPI BID for 1 month, then daily. The slurry is quite expensive, she could get the tablets for home use. Repeat CBC in the near future and again in about 1 month. Hospital Course Summary Disclaimer: The visit summary below is not to be considered part of the above Progress Note. Hospital Course: Plan - 10/17/17: Admit to inpatient status under the care of Dr. Mitchell due to GI bleed and symptomatic anemia resulting in syncopal episode. Will consult Dr. Nicholas in AM for surgical evaluation. Hgb 8.7 on admission - patient given 1L NS in ED. Will monitor serial hemoglobins. Type and cross 2 units now - will hold PRBC at this time. Protonix 40mg IV BID for suspected gastritis, PUD and GI protection. Maintain NPO status given nausea and acute bleed as well as anticipated endoscopy tomorrow. NS 100cc/hr for hydration. Monitor closely for signs of fluid overload. Blood pressure elevated in ED. Monitor closely. Continue home amlodipine, benazepril, and propranolol. Will hold home ibuprofen, ASA and meloxicam given GI bleed. Morphine 1-2mg IV PRN as well as Tylenol. Zofran as needed for nausea/vomiting. Recheck labs in AM to monitor blood counts, electrolytes and renal function. SCDs for DVT prophylaxis. Upon discharge, patient's care will be returned to her PCP, Dr. Hebert. 10/18/17 Hgb trended down to 7.[address] Mitchell has ordered PRBC unit. Dr. Nicholas consulted -EGD obtained demonstrating a gastric ulcer. Continue PPI, Carafate added. Iron deficiency present, patient/family have opted for IV iron replacement which will be administered today. BP was elevated yesterday; today has decreased to 125/58 - continue to monitor closely in the face of acute GI bleeding. Safe at this point to continue Norvasc and Lotensin. Cont IVF support. K decreased to 3.3 - IVF changed to include KCl. Recheck in am. 10/19 Surgery note: Prepyloric gastric ulcer found on EGD. She was started on Carafate Slurry AC30HS yesterday and should continue for 1 month. Continue PPI BID for 1 month, then daily. The slurry is quite expensive, she could get the tablets for home use. Repeat CBC in the near future and again in about 1 month.
--- NOTE | 2017-10-19 11:18 | Discharge Summary ---
Discharge Information Date of admission: 10/17/17 17:31 Anticipated date of discharge: 10/19/17 Attending Physician: Lazara Mitchell MD Primary care physician: Nevin Hebert MD Consults: Physician Consult [CONS] Routine Consulting Provider: Julio Nicholas - Discharge Diagnosis (1) Syncope Status: Resolved (2) GI bleed Status: Acute DISCHARGE DIAGNOSES Prepyloric gastric ulcer GI bleed, secondary to above, resolved. Symptomatic anemia (POA) - transfused 1 unit PRBC 10/18/17. Iron deficiency - IV iron infusion 10/18/17 Syncope, prior to admission. Abdominal pain, epigastric, present on admission - resolved. CHRONIC AND ASSOCIATED CONDITIONS Hypertension. Osteoarthritis. Chronic back pain. Chronic pancreatitis. History of gastritis with use of Meloxicam- 2014. - Procedures Procedures: DATE OF SERVICE 10/18/2017 SURGEON Julio Nicholas MD PREOPERATIVE DIAGNOSES History for melanotic stools, history for syncopal event, history for anemia, history for Hemoccult positive stool. POSTOPERATIVE DIAGNOSES History for melanotic stools, history for syncopal event, history for anemia, history for Hemoccult positive stool; hiatal hernia, prepyloric gastric ulcer. PROCEDURE Esophagogastroduodenoscopy with biopsies of edge of prepyloric ulcer as well as from within antrum via cold biopsy technique. ANESTHESIA TIVA BRIEF HISTORY/INDICATIONS Mrs. Yan is an 87-year-old female I was asked to see as a new patient today following her hospitalization as a result of her questionable history for melanotic stools, finding of anemia upon laboratory evaluation, recent syncopal event, and the finding of a Hemoccult positive stool. It was recommended the patient undergo an EGD for further evaluation. For completeness please refer to notes included in the patient's chart. FINDINGS Upon upper endoscopy the patient was found have about an 8 cm hiatal hernia. 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 Additionally, along the greater curvature within the prepyloric region, the patient was found to have a gastric ulcer. The ulcer itself was on the order of about 8 mm to a centimeter in dimension. There was a white exudate -like material overlying the ulcer bed. There was no evidence for active bleeding. Biopsies were obtained from the edge of this ulcer via cold biopsy technique. Biopsies were also obtained from within the antrum to rule in or rule out the presence of H. pylori. DESCRIPTION OF PROCEDURE After informed consent was obtained, the patient was brought to the endoscopy suite and placed on the table in left lateral decubitus position. The patient subsequently underwent total intravenous anesthesia by the nurse motor rebuilder per my request. Formal time-out was then completed. Next, an Olympus gastroscope was inserted in the oral hypopharynx and subsequently the esophagus under direct visualization. Gastroscope was advanced through the esophagus, stomach, pylorus, duodenal bulb, into second portion of duodenum. Scope was slowly withdrawn. First and second portions of duodenum were within normal limits. No evidence of duodenitis or ulcerations were noted. Scope was withdrawn back to the prepyloric region and antrum. As stated above, the patient was found to have an 8 mm to 1 cm ulcer along the greater curvature of the stomach within the prepyloric region. There was a white exudate-like material overlying the ulcer bed. The ulcer was not actively bleeding. Biopsies were obtained from the edge of the ulcer via cold biopsy technique. Additionally, there was an erythematous-appearing area that extended away from the actual ulcer bed towards a submucosal area of prominence. Biopsies were also obtained from within this area for permanent pathology. The patient was found to have a submucosal area of prominence along the lesser curvature of the stomach within the prepyloric region. 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 Biopsies were also obtained from within the antrum for a EDUAR assay via cold biopsy technique. A J maneuver was then performed. Endoscopically, the patient was found to have evidence for a hiatal hernia. Otherwise, the cardia and fundus were within normal limits. The scope was allowed to straightened and slowly withdrawn and the remaining corpus of the stomach was well visualized and, again, without noted abnormalities. The scope was withdrawn back to the level of the diaphragm which was at about 40 cm from the incisors. The scope was withdrawn back to the squamocolumnar junction which was at about 32 cm from the incisors. Therefore, the patient had about an 8 cm hiatal hernia. The scope was then slowly withdrawn and the remaining esophageal mucosa was found within normal limits. The patient tolerated the procedure without difficulty and was sent back to the preop area in stable condition. Given the findings of this gastric ulcer, we also will add Carafate to her medical regimen. Given the fact the patient is not actively bleeding, I do believe the patient could be begun on a soft diet. - Laboratory Labs: 10/19/17 04:03 10/19/17 04:03 - Radiology Radiology: Date of Exam: 10/17/17 PROCEDURE: CT head/brain wo con: FINDINGS: Mild generalized atrophy. The ventricles are of normal size, shape, and configuration for the patient's age. There is no evidence of acute intracranial hemorrhage, midline displacement, or mass effect. There are multiple areas of low attenuation in the white matter which most likely represent changes of chronic microvascular ischemia. The CT attenuation of the brain parenchyma is otherwise normal within the cerebellum, brain stem, and cerebral hemispheres. The tympanic cavities and mastoid air cells are free of appreciable disease. There are no definite fractures of the skull base, calvarium, or visualized portion of the midface. IMPRESSION: No CT evidence of acute traumatic intracranial injury. - Pathology PTH Surgical specimen Fragments of gastric mucosa, biopsies - benign edematous gastric mucosa with mild chronic inflammation. Focal features suggestive of reactive gastropathy. No metaplasia, dysplasia, or malignant neoplasm identified. No Helicobacter organisms identified. History of Present Illness HPI: Mirlande Yan is a very pleasant, relatively healthy, 87-year-old female patient of Dr. Hebert. She reports that for the past few weeks she has had increasing generalized weakness and fatigue. This morning, around 0700, she woke up and had some mild epigastric abdominal pain and nausea. She got up and had a drink of water and then the next thing she remembers is waking up on the floor with her walker on it's side. She denies any injury or other proceeding symptoms. No head injury, dizziness, lightheadedness, headache, change in vision, chest pain, shortness of breath, heart racing or palpitations. She was able to get herself up off the floor using her walker and get back into bed. Her daughters came by to check on her this afternoon at which time she notified them of her "fall". She also admits that as the day progressed, she had increasing stools x 3-4 which were looser than normal but denies diarrhea. She states that her stool was very dark and family reports seeing some blood tinged water in the toilet, though denies any bight red blood in or on the stool. Due to her generalized weakness with syncopal episode, she presented to [facility] ED for further evaluation. Vital signs on admission with blood pressure elevated at 182 /80. Labs were obtained and revealed new anemia with hemoglobin at 8.7 as well as heme positive fecal occult test. Given her syncope, EKG was obtained and showed sinus rhythm and CT head was unremarkable. Dr. Mitchell was consulted and she was admitted into inpatient status for further evaluation, close monitoring of hemodynamic stability and surgical consult. Her length of stay is expected to exceed more than 2 over nights. On exam, she is seen in the ED with her family at the bedside, who contribute to the history. She denies any complaints or concerns at this time and expresses a desire to go home. Objective Vital signs: Temperature 97.7 F 10/19/17 07:45 Pulse Rate 69 10/19/17 08:00 Respiratory Rate 14 10/19/17 07:45 Blood Pressure 156/71 H 10/19/17 07:45 Pulse Oximetry 94 10/19/17 07:45 Height/Weight/BMI: Height 1.57 m Weight 68.7 kg Body Mass Index 27.6 - Constitutional Present: no acute distress, well nourished, well developed, thin - Routine HEENT Exam Head: Present: normocephalic Eye: Absent: conjunctival icterus, scleral injection - Routine Respiratory Exam Present: CTA bilaterally - Routine Cardiovascular Exam Present: RRR, S1, S2 - Routine Abdominal Exam Present: soft, non distended, non tender. Absent: normoactive bowel sounds ( hypoactive) - Routine Extremities Exam Present: no edema, pulses intact - Routine Skin Exam Present: intact, dry, warm - Routine Neurological Exam Present: alert, oriented X3, CN II-XII intact, normal speech - Routine Psychiatric Exam Present: normal affect, normal thought process, cooperative Hospital Course This is a general summary of the patient's hospital course. For more details refer to the complete medical record. Hospital course: 10/17/17: Admit for GI bleed and syncope. Consult Dr. Nicholas. Hgb 8.7 on admission; serial hgb monitored. She was typed and crossed. Protonix was started BID. Initial diet was NPO and she was started on NS. Hold home ibuprofen, ASA and meloxicam given GI bleed. 10/18/17 Hgb trended down to 7.5 and she was transfused 1 unit PRBC. Vital signs remained stable. She was asymptomatic despite drop in hgb. Iron deficiency present, IV iron replacement was administered. She had EGD by Dr. Nicholas which demonstrated a gastric ulcer. Carafate was added to her meds. K decreased to 3.3 - IVF changed to include KCl. 10/19/17: Discharge Asymptomatic and VSS. Hgb 8.5. Started on Carafate Slurry AC30HS yesterday and should continue for 1 month. Continue PPI BID for 1 month, then daily. The slurry is quite expensive, will Rx tablets for home use. Repeat CBC in 1 week and again in about 1 month. F/U with Dr. Hebert in 1 week. Pt was cautioned to avoid NSAIDs, meloxicam, ASA. Time spent with patient: discharge greater than 30 minutes Resuscitation Status: Do Not Resuscitate Discharge Plan - Discharge Disposition Discharge Date: 10/19/17 Disposition: 01 Discharged Home, Self-Care *Condition: Improved Reason For Visit (Visit label in EMR): Gastric ulcer, GI bleed - Discharge Medications *Discharge Medications: New Sucralfate [Carafate] 1 gm PO ACHS #120 tab Pantoprazole Sodium [Protonix] 1 tab PO ACBID #60 tab Continue Gluc Romero/Chondro Romero A/Vit C/Mn (Glucosamine 1,500 Complex Cap) 1 cap PO BID #0 Red Yeast Rice 2 tab DAILY #0 Ubidecarenone/Vitamin E Mixed (Coq10 Sg 100 Softgel) 1 cap PO BID #0 Calcium Carbonate/Vitamin D3 (Calcium 600 + D Tablet) 1 tab PO BID #0 Trazodone [Desyrel] 100 mg PO HS HydroCHLOROthiazide [Microzide] 12.5 mg PO DAILY Tramadol HCl [Ultram] 50 mg PO Q6H PRN PRN Reason: Pain Amlodipine Besylate [Norvasc] 5 mg PO NOON Potassium Chloride 20 meq PO DAILY #0 Propranolol Hcl 60 mg PO DAILY #0 Multivitamins (Multivitamin) 1 tab PO DAILY #0 Cholecalciferol [Vit. D-3] 1 tab PO DAILY #0 Benazepril HCl 40 mg PO DAILY APAP/Diphenhydramine 500/25 [Tylenol Pm] 1 tab PO HS Discontinued Simpson-3 Fatty Acids/Fish Oil [Fish Oil 1,000 mg Softgel] 1 cap PO BID Meloxicam [Meloxicam] 15 mg PO DAILY Aspirin 1 tab PO HS - Discharge Packet/Instructions *Diet: Regular diet as tolerated. Soft foods are recommended. *Activity: Change positions slowly, otherwise, no restrictions. *Pain Management/Treatment: Tylenol if needed. Do not take ibuprofen, aspirin, naproxen, or meloxicam for pain - these can make bleeding worse. *Wound Care: N/A Additional Instructions: Stop taking aspirin, fish oil until Dr. Hebert tells you it is safe to resume. *Expected Signs/Symptoms: You may feel weak, tired, lightheaded from your hospital stay and recent GI bleed, but this should improve. You might have some dark-colored stools for a few days, but this should resolve as the ulcer heals. *Notify Physician if: Signs of anemia such as shortness of breath, weakness, dizziness, spinning or lightheadness, passing out. Also, if you develop abdominal pain, worsened GI bleeding (ie black or bloody stools or blood in vomit). *During Business Hours Contact: Dr. Hebert's office or Dr. Nicholas's office. *After Business Hours Contact: The on-call provider for Dr. Hebert or Dr. Nicholas. *Pending Lab/Results: No Pending Lab Outpatient Orders: CBC w/o Diff- Hemagram - [facility] Time Frame: 1 Week, Location: None Selected - Referrals/Follow Up *Referrals/Follow Up: Nevin Hebert MD [Family Provider] - 1 Week (APPOINTMENT ON 11/03 AT 10:30. .) Julio Nicholas MD [Physician] - ( NEEDED) - Patient Handouts Patient Handouts: Gastrointestinal Bleeding (GEN) - Dismissal Complete Discharge Instructions are:: Complete Physician Narrative - Narrative Physician: Lazara Mitchell MD Attestation Narrative: Date: 10/19/17 Time: [id number] I have independently evaluated and examined this patient. I reviewed the chart, the patient's history, and the LABOR TRAINER/PA's documented findings as above. We discussed and formulated the assessment and plan as above with additions as below: Mrs. Yan reported that she feels much better today; she denied abdominal pain or nausea and has no lightheadedness. She is tolerating meals without difficulty and is anxious to discharge home. She had no difficulty with IV iron infusion yesterday. NAD, alert, respirations nonlabored with clear breath sounds; benign abdomen. Pathology reviewed with patient and her daughter-no evidence of malignancy, no Helicobacter organisms visually seen. Discussed dissolving Carafate tablets to form suspension prior to administration. Asked to follow-up with Dr. Hebert in approximately one week for reevaluation. Stable for discharge.
[2017-10-19 13:06] VITALS: BP 135/60; PULSE 70; RESP 16; O2SAT 95
== END 2017-10-19 13:45 | disposition home or self-care (01) | DRG 378 ==
LOC: ED 15:40 → MED 17:31
PROVIDERS: ADMIT Internal Medicine; ATTEND Internal Medicine
PROC: END.EGD (2017-10-18 10:50)